=== PATIENT | female | born 2005 | race African-American/Black ===

== ENCOUNTER 2024-02-12 22:27 | Emergency (ER) | payer SELFPAY ==
[~2024-02-12] VITALS: Ht 188 cm; Wt 51.4 kg
[2024-02-12 22:33] VITALS: TEMP 97.4
[2024-02-12] MEDS ORDERED: NAPROSYN500 MG PO (23:12)
[2024-02-12] MEDS ORDERED: Naproxen 250 MG TAB PO ONE (23:15)
[2024-02-12 23:29] VITALS: BP 118/75; PULSE 53
== END 2024-02-12 23:29 | disposition home or self-care (01) ==
LOC: COL.ER 22:27
DX: N92.6 Irregular menstruation, unspecified (principal)